=== PATIENT | female | born 1960 | race American Indian/Alaskan Native ===

== ENCOUNTER 2019-04-23 06:28 | Emergency (ER) | payer OTHER ==
[2019-04-23] MEDS ORDERED: NORCO 5/325 PO ONE (08:30)
--- NOTE | 2019-04-23 08:50 | Emergency Department Report ---
ED Extremity Problem HPI - General Chief complaint: Extremity Problem,Nontraumatic Stated complaint: R LEG PAIN Time Seen by Provider: 04/23/19 08:26 Source: patient Mode of arrival: Wheelchair Limitations: No Limitations - History of Present Illness Initial comments: 58 year old female with a past medical history presents to the hospital complaints of right-sided hip pain since yesterday. Pain was mild yesterday but more severe today. Pain is constant, rated 10/10 in intensity, aggravated with movement and ambulation. Pain is described as cramping that starts at the hip and goes down to the knee. She denies weakness, numbness, paresthesias, or urinary incontinence. Also denies trauma or fever. She saw her PCP yesterday and was prescribed Zanaflex and Naprosyn without improvement. She denies previous episodes of similar pain. - Related Data Previous Rx's Medication Instructions Recorded Last Taken Type traMADol [Ultram 50 MG tab] 50 mg PO Q6HR PRN #20 tablet 04/23/19 Unknown Rx Allergies Allergy/AdvReac Type Severity Reaction Status Date / Time metoclopramide [From Reglan] Allergy Unknown Verified 04/23/19 06:31 ED Review of Systems ROS: Stated complaint: R LEG PAIN Other details as noted in HPI Comment: All other systems reviewed and negative ED Past Medical Hx - Past Medical History Previous Medical History?: No - Surgical History Past Surgical History?: Yes Additional Surgical History: tubal ligation - Social History Smoking Status: Current Every Day Smoker Substance Use Type: Alcohol - Medications Home Medications: Home Medications Medication Instructions Recorded Confirmed Last Taken Type traMADol [Ultram 50 MG tab] 50 mg PO Q6HR PRN #20 tablet 04/23/19 Unknown Rx ED Physical Exam - General Limitations: No Limitations - Other Other exam information: General: No limitations Head exam: Atraumatic, normocephalic Eyes exam: Normal appearance ENT: Moist mucous membrane, normal oropharynx Neck exam: Normal inspection, full range of motion, no meningismus nontender Respiratory exam: Clear to auscultation bilateral, no wheezes, rales, crackles Cardiovascular: Normal rate and rhythm, normal heart sounds Abdomen: Soft, nondistended, and nontender, with normal bowel sounds, no rebound, or guarding Extremity: Full range of motion with passive movement. Tenderness at the right lateral hip joint to palpation. 2+ DP pulse. No warmth or erythema Back: Normal Inspection, full range of motion, no tenderness Neurologic: Alert, oriented x3, cranial nerves intact, no motor or sensory deficit Psychiatric: normal affect, normal mood Skin: Warm, dry, intact ED Course Vital Signs 04/23/19 04/23/19 06:31 09:18 Temperature 97.6 F Pulse Rate 82 Respiratory 18 18 Rate Blood Pressure 127/83 O2 Sat by Pulse 99 Oximetry ED Medical Decision Making - Radiology Data Radiology results: report reviewed RIGHT HIP, 2 views: History: Right hip pain. The bony architecture is intact without evidence of fracture or dislocation. No significant soft tissue abnormality is seen. IMPRESSION: Normal right hip. - Medical Decision Making Patient received pain medicine ED. X-ray without acute injury. Outpatient follow-up advised. - Differential Diagnosis arthritis, bursitis, infection, radiculopathy Critical Care Time: No Critical care attestation.: If time is entered above; I have spent that time in minutes in the direct care of this critically ill patient, excluding procedure time. ED Disposition Clinical Impression: Right hip pain Disposition: TO HOME OR SELFCARE Is pt being admited?: No Does the pt Need Aspirin: No Condition: Stable Instructions: Hip Sprain (ED) Additional Instructions: Take the medication as prescribed. Follow up with your doctor or the clinic/doctor provided. Return if symptoms worsen as indicated by your discharge instructions Prescriptions: traMADol [Ultram 50 MG tab] 50 mg PO Q6HR PRN #20 tablet PRN Reason: Pain Referrals: YANET STRINGER MD [Primary Care Provider] - 3-5 Days GLORIA MCKEON MD [Staff Physician] - 3-5 Days Time of Disposition: 09:38
--- NOTE | 2019-04-23 09:28 | XRay Report ---
RIGHT HIP, 2 views: History: Right hip pain. The bony architecture is intact without evidence of fracture or dislocation. No significant soft tissue abnormality is seen. IMPRESSION: Normal right hip.
[2019-04-23 09:55] VITALS: BP 121/81
== END 2019-04-23 09:54 | disposition home or self-care (01) ==
LOC: ED 06:28
DX: M25.551 Pain in right hip (principal); F17.200 Nicotine dependence, unspecified, uncomplicated